=== PATIENT | male | born 1990 | race Caucasian/White ===

== ENCOUNTER 2020-06-05 17:27 | Emergency (ER) | payer OTHER ==
[2020-06-05 18:29] LABS: Absolute Lymphocytes (CBC) 1.4 K/uL (0.7-4.9); Basophils % 0.4 % (0-1.3); Hematocrit 43.7 % (39.6-49.0); Lymphocytes % 8.4 % (15.3-44.8); MPV 8.7 fL (7.6-11.3); RBC Red Blood Cell Count 5.14 M/uL (4.33-5.43)
[2020-06-05] MEDS ORDERED: ONDANSETRON 4 MG/2 ML VIAL ONE (18:31)
[2020-06-05] MEDS ORDERED: NA CHLORIDE 0.9% 1,000 ML ONE (18:31)
[2020-06-05] MEDS ORDERED: MORPHINE 4 MG/ML SYR ONE ×2 (18:31→19:05)
[2020-06-05 18:53] LABS: Albumin 4.8 g/dL (3.4-5.0); Bilirubin Direct 0.2 mg/dL (0-0.2); Potassium 3.4 mmol/L (3.5-5.1); Protein, Total 8.1 g/dL (6.4-8.2)
--- NOTE | 2020-06-05 20:02 | RAD REPORT ---
EXAM DESCRIPTION: CTAbdomen Pelvis W Contrast - 06/05/2020 7:25 pm CLINICAL HISTORY: Abdominal pain. ABD PAIN COMPARISON: No comparisons TECHNIQUE: Biphasic CT imaging of the abdomen and pelvis was performed with 100 ml non-ionic IV cont rast. All CT scans are performed using dose optimization technique as appropriate and may include automated exposure control or mA/KV adjustment according to patient size. FINDINGS: The lung bases are clear. The liver, spleen, pancreas, adrenal glands and kidneys are within normal limits. No bowel obstruction, free air, free fluid or abscess. Colonic stool retention is present. There is m ild wall thickening seen in the region of the ascending colon to the level of the hepatic flexure. Th e appendix is normal. No evidence of significant lymphadenopathy. No suspicious bony findings. IMPRESSION: Negative for appendicitis. Mild colitis is suspected involving the right colon.
--- NOTE | 2020-06-05 20:10 | EDPHYS ---
Physician Documentation [facility] Name: Dk Talley Age: 30 yrs Sex: Male : 1990 Arrival Date: 06/05/2020 Time: 17:28 Bed 17 Private MD: ED Physician Justo Beasley HPI: 06/05 20:14 This 30 yrs old Male presents to ER via Ambulatory with complaints of kb Appendicitis. 20:14 The patient presents with abdominal pain that is diffuse. Onset: The symptoms/episode kb began/occurred this morning. The symptoms do not radiate. Associated signs and symptoms: Pertinent positives: diarrhea, Pertinent negatives: nausea and vomiting, fever. The symptoms are described as constant. Modifying factors: The symptoms are alleviated by nothing, the symptoms are aggravated by nothing. Severity of pain: At its worst the pain was moderate in the emergency department the pain is unchanged. The patient has not experienced similar symptoms in the past. The patient has not recently seen a physician. Pt reports diffuse abd pain, worse in RLQ, that started this morning and has been getting progressively worse. Reports diarrhea as well. Denies n/v/f. . 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 - Social history:: Smoking status: unknown. ROS: 20:13 Constitutional: Negative for fever, chills, and weight loss, Cardiovascular: Negative kb for chest pain, palpitations, and edema, Respiratory: Negative for shortness of breath, cough, wheezing, and pleuritic chest pain, Back: Negative for injury and pain, MS/Extremity: Negative for injury and deformity, Skin: Negative for injury, rash, and discoloration, Neuro: Negative for headache, weakness, numbness, tingling, and seizure. 20:13 Abdomen/GI: Positive for abdominal pain, diarrhea, Negative for nausea and vomiting. Exam: 20:13 Constitutional: This is a well developed, well nourished patient who is awake, alert, kb and in no acute distress. Head/Face: Normocephalic, atraumatic. Chest/axilla: Normal chest wall appearance and motion. Nontender with no deformity. No lesions are appreciated. Cardiovascular: Regular rate and rhythm with a normal S1 and S2. No gallops, murmurs, or rubs. Normal PMI, no JVD. No pulse deficits. Respiratory: Lungs have equal breath sounds bilaterally, clear to auscultation and percussion. No rales, rhonchi or wheezes noted. No increased work of breathing, no retractions or nasal flaring. Skin: Warm, dry with normal turgor. Normal color with no rashes, no lesions, and no evidence of cellulitis. MS/ Extremity: Pulses equal, no cyanosis. Neurovascular intact. Full, normal range of motion. Neuro: Awake and alert, GCS 15, oriented to person, place, time, and situation. Cranial nerves II-XII grossly intact. Motor strength 5/5 in all extremities. Sensory grossly intact. Cerebellar exam normal. Normal gait. 20:13 Abdomen/GI: Inspection: abdomen appears normal, Bowel sounds: normal, in all quadrants, Palpation: soft, in all quadrants, mild abdominal tenderness, in all quadrants. Vital Signs: 17:51 BP 131 / 66; Pulse 80; Resp 18; Temp 97.4(TE); Pulse Ox 100% on R/A; Weight 74.84 kg; ss Height 6 ft. 1 in. (185.42 cm); Pain 9/10; 20:30 BP 125 / 72; Pulse 82; Resp 17 S; Pulse Ox 100% on R/A; jd3 17:51 Body Mass Index 21.77 (74.84 kg, 185.42 cm) MDM: 17:47 Patient medically screened. kb 20:13 Data reviewed: vital signs, nurses notes. Data interpreted: Pulse oximetry: on room air kb is 100 %. Interpretation: normal. Counseling: I had a detailed discussion with the patient and/or guardian regarding: the historical points, exam findings, and any diagnostic results supporting the discharge/admit diagnosis, lab results, radiology results, the need for outpatient follow up, a family practitioner, to return to the emergency department if symptoms worsen or persist or if there are any questions or concerns that arise at home. 06/05 17:47 Order name: Basic Metabolic Panel; Complete Time: 19:04 kb 06/05 17:47 Order name: CBC with Diff; Complete Time: 18:32 kb 06/05 17:47 Order name: CT Abd/Pelvis - PO and IV Contrast; Complete Time: 20:04 kb 06/05 17:47 Order name: Hepatic Function; Complete Time: 19:04 kb 06/05 17:47 Order name: Lipase; Complete Time: 19:04 kb 06/05 17:47 Order name: IV Saline Lock; Complete Time: 18:22 kb 06/05 17:47 Order name: Labs collected and sent; Complete Time: 18:22 kb Administered Medications: 18:22 Drug: NS 0.9% 1000 ml Route: IV; Rate: 1000 ml; Site: right antecubital; jd3 19:20 Follow up: Response: No adverse reaction; IV Status: Completed infusion; IV Intake: jd3 1000ml 18:22 Drug: morphine 4 mg Route: IVP; Site: right antecubital; jd3 19:20 Follow up: Response: No adverse reaction; RASS: Alert and Calm (0) jd3 18:23 Drug: Zofran (Ondansetron) 4 mg Route: IVP; Site: right antecubital; jd3 19:20 Follow up: Response: No adverse reaction jd3 18:59 CANCELLED (Duplicate Order): Zofran (Ondansetron) 4 mg IVP once; over 2 minutes jd3 19:00 Drug: morphine 4 mg Route: IVP; Site: right antecubital; jd3 20:00 Follow up: Response: No adverse reaction; RASS: Alert and Calm (0) jd3 20:42 Drug: fentaNYL (PF) 50 mcg Route: IVP; Site: right antecubital; jd3 20:56 Follow up: Response: Medication administered at discharge. jd3 20:43 Drug: Cipro 500 mg Route: PO; jd3 20:57 Follow up: Response: Medication administered at discharge. jd3 20:43 Drug: Flagyl 500 mg Route: PO; jd3 20:56 Follow up: Response: Medication administered at discharge. jd3 Disposition: 06/06 13:28 Co-signature as Attending Physician, Justo Beasley MD I agree with the assessment and kdr plan of care. Disposition: 06/05/20 20:09 Discharged to Home. Impression: Generalized abdominal pain - Colitis. - Condition is Stable. - Discharge Instructions: Abdominal Pain, Adult, [id number], Colitis. - Prescriptions for Bentyl 20 mg Oral Tablet - take 1 tablet by ORAL route every 6 hours As needed; 20 tablet. Cipro 500 mg Oral Tablet - take 1 tablet by ORAL route every 12 hours for 10 days; 20 tablet. Flagyl 500 mg Oral Tablet - take 1 tablet by ORAL route every 8 hours for 10 days; 30 tablet. Zofran 4 mg Oral Tablet - take 1 tablet by ORAL route every 6 hours As needed; 20 tablet. Tramadol 50 mg Oral Tablet - take 1 tablet by ORAL route every 8 hours as needed; 12 tablet. - Medication Reconciliation Form, Thank You Letter, Antibiotic Education, Prescription Opioid Use form. - Follow up: Emergency Department; When: As needed; Reason: Worsening of condition. Follow up: Private Physician; When: 2 - 3 days; Reason: Recheck today's complaints, Continuance of care, Re-evaluation by your physician. Signatures: Dispatcher [employer] EDIA Ina Nagel, HALLE-Clem [employer] FACILITATOR-Justo Holt MD MD [facility] Bekah Isabel RN RN Jose Mcconnell RN RN jd3 Corrections: (The following items were deleted from the chart) 06/05 18:59 18:58 Zofran (Ondansetron) 4 mg IVP once; over 2 minutes ordered. jd3 jd3 19:17 17:52 PSHx: None; ss jd3 20:59 20:09 06/05/2020 20:09 Discharged to Home. Impression: Generalized abdominal pain - jd3 Colitis. Condition is Stable. Forms are Medication Reconciliation Form, Thank You Letter, Antibiotic Education, Prescription Opioid Use. Follow up: Emergency Department; When: As needed; Reason: Worsening of condition. Follow up: Private Physician; When: 2 - 3 days; Reason: Recheck today's complaints, Continuance of care, Re-evaluation by your physician. kb
--- NOTE | 2020-06-05 20:10 | ER ---
Nurse's Notes [facility] Name: Dk Talley Age: 30 yrs Sex: Male : 1990 Arrival Date: 06/05/2020 Time: 17:28 Bed 17 [facility] MD: Diagnosis: Generalized abdominal pain-Colitis Presentation: 06/05 17:51 Chief complaint: Patient states: RLQ pain that began this morning. Coronavirus screen: ss Client denies travel out of the [place] in the last 14 days. Ebola Screen: Patient denies exposure to infectious person. Patient denies travel to an Ebola-affected area in the 21 days before illness onset. Initial Sepsis Screen: Does the patient meet any 2 criteria? No. Patient's initial sepsis screen is negative. Does the patient have a suspected source of infection? No. Patient's initial sepsis screen is negative. Risk Assessment: Do you want to hurt yourself or someone else? Patient reports no desire to harm self or others. Onset of symptoms was June 05, 2020. 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 - Social history:: Smoking status: unknown. Screenin:23 Abuse screen: Denies threats or abuse. Nutritional screening: No deficits noted. jd3 Tuberculosis screening: No symptoms or risk factors identified. Fall Risk Ambulatory Aid- None/Bed Rest/Nurse Assist (0 pts). Gait- Normal/Bed Rest/Wheelchair (0 pts) Mental Status- Oriented to own ability (0 pts). Total Roper Fall Scale indicates No Risk (0-24 pts). Assessment: 18:15 General: Appears in no apparent distress. uncomfortable, Behavior is calm, cooperative, jd3 appropriate for age. Pain: Complains of pain in right lower quadrant Quality of pain is described as sharp. Neuro: Level of Consciousness is awake, alert, obeys commands, Oriented to person, place, time, situation. Cardiovascular: Denies chest pain, Capillary refill < 3 seconds Patient's skin is warm and dry. Respiratory: Airway is patent Respiratory effort is even, unlabored, Respiratory pattern is regular, symmetrical, Denies cough, shortness of breath. GI: Abdomen is round non-distended, Bowel sounds present X 4 quads. Abd is soft X 4 quads Abdomen is tender to palpation in right upper quadrant and right lower quadrant Reports diarrhea, nausea. : No signs and/or symptoms were reported regarding the genitourinary system. EENT: No signs and/or symptoms were reported regarding the EENT system. Derm: Skin is intact, Skin is dry, Skin is normal, Skin temperature is warm. Musculoskeletal: Circulation, motion, and sensation intact. Range of motion: intact in all extremities. 18:37 Reassessment: Patient appears in no apparent distress at this time. Patient and/or jd3 family updated on plan of care and expected duration. Pain level reassessed. Patient is alert, oriented x 3, equal unlabored respirations, skin warm/dry/pink. PO contrast finished, CT notified. 19:44 Reassessment: Patient appears in no apparent distress at this time. Patient and/or jd3 family updated on plan of care and expected duration. Pain level reassessed. Patient is alert, oriented x 3, equal unlabored respirations, skin warm/dry/pink. pt reports pain as tolerable. awaiting CT result. 20:56 Reassessment: Patient appears in no apparent distress at this time. Patient and/or jd3 family updated on plan of care and expected duration. Pain level reassessed. Patient is alert, oriented x 3, equal unlabored respirations, skin warm/dry/pink. Patient states feeling better. Vital Signs: 17:51 BP 131 / 66; Pulse 80; Resp 18; Temp 97.4(TE); Pulse Ox 100% on R/A; Weight 74.84 kg; ss Height 6 ft. 1 in. (185.42 cm); Pain 9/10; 20:30 BP 125 / 72; Pulse 82; Resp 17 S; Pulse Ox 100% on R/A; jd3 17:51 Body Mass Index 21.77 (74.84 kg, 185.42 cm) ED Course: 17:28 Patient arrived in ED. ag5 17:37 In[facility] Nagel [facility]-C [facility] kb 17:37 Justo Beasley MD is Attending Physician. kb 17:51 Triage completed. ss 17:52 Arm band placed on right wrist. ss 18:15 Jose Kovacs, RN is Primary Nurse. jd3 18:17 Initial lab(s) drawn, by me, sent to lab. Inserted saline lock: 20 gauge in right dh3 antecubital area, using aseptic technique. Blood collected. 18:23 Patient has correct armband on for positive identification. Bed in low position. Call jd3 light in reach. Side rails up X 1. Adult w/ patient. Pulse ox on. NIBP on. 19:26 CT Abd/Pelvis - PO and IV Contrast In Process Unspecified. EDMS 20:55 No provider procedures requiring assistance completed. IV discontinued, intact, jd3 bleeding controlled, No redness/swelling at site. Pressure dressing applied. Administered Medications: 18:22 Drug: NS 0.9% 1000 ml Route: IV; Rate: 1000 ml; Site: right antecubital; jd3 19:20 Follow up: Response: No adverse reaction; IV Status: Completed infusion; IV Intake: jd3 1000ml 18:22 Drug: morphine 4 mg Route: IVP; Site: right antecubital; jd3 19:20 Follow up: Response: No adverse reaction; RASS: Alert and Calm (0) jd3 18:23 Drug: Zofran (Ondansetron) 4 mg Route: IVP; Site: right antecubital; jd3 19:20 Follow up: Response: No adverse reaction jd3 18:59 CANCELLED (Duplicate Order): Zofran (Ondansetron) 4 mg IVP once; over 2 minutes jd3 19:00 Drug: morphine 4 mg Route: IVP; Site: right antecubital; jd3 20:00 Follow up: Response: No adverse reaction; RASS: Alert and Calm (0) jd3 20:42 Drug: fentaNYL (PF) 50 mcg Route: IVP; Site: right antecubital; jd3 20:56 Follow up: Response: Medication administered at discharge. jd3 20:43 Drug: Cipro 500 mg Route: PO; jd3 20:57 Follow up: Response: Medication administered at discharge. jd3 20:43 Drug: Flagyl 500 mg Route: PO; jd3 20:56 Follow up: Response: Medication administered at discharge. jd3 Intake: 19:20 IV: 1000ml; Total: 1000ml. jd3 Outcome: 20:09 Discharge ordered by MD. rudd 20:55 Discharged to home ambulatory, with family. jd3 20:55 Condition: stable 20:55 Discharge instructions given to patient, family, Instructed on discharge instructions, follow up and referral plans. medication usage, Demonstrated understanding of instructions, follow-up care, medications, Prescriptions given X 5 20:59 Patient left the ED. jd3 Signatures: Dispatcher [employer] EDMA Ina Nagel, HALLE-Clem NERI-Bekah Pan, RN RN Kenia Delong 3 Jose Kovacs RN RN jd3 Landry Tom 5 Corrections: (The following items were deleted from the chart) 19:17 17:52 PSHx: None; jd3 21:00 20:59 BP 125 / 72; Pulse 82bpm; Resp 17bpm; Spontaneous; Pulse Ox 100% RA; jd3 jd3
[2020-06-05] MEDS ORDERED: CIPROFLOXACIN HCL 500 MG TAB ONE (20:48)
[2020-06-05] MEDS ORDERED: metroNIDAZOLE 500 MG TABLET ONE (20:48)
[2020-06-05] MEDS ORDERED: FENTANYL CITR 100 MCG/2 ML ONE (20:49)
[2020-06-05 21:37] VITALS: BP 131/66; TEMP 97.4; O2SAT 100
== END 2020-06-05 20:59 | disposition home or self-care (01) ==
LOC: ER 17:27
DX: K52.9 Noninfective gastroenteritis and colitis, unspecified (principal)
CPT/HCPCS: 96361; 85025; 80048; 36415; 80076; 83690; 74177; 96375; 96374; 99284; Q9967; J3010; J7030; J2405